=== PATIENT | male | born 1930 | race Caucasian/White ===

== ENCOUNTER → 2018-07-31 | Outpatient (REF) | payer MEDICARE ==
[2018-07-31 18:26] LABS: PERCENT SATURATION 15.4 % (19.7-50.0)
[2018-07-31 18:35] LABS: FOLATE 4.9 NG/ML
== END ==
LOC: M LAB REF 17:26
PROVIDERS: ATTEND Internal Medicine Nephrology
DX: D64.9 Anemia, unspecified (principal)

== ENCOUNTER → 2018-08-09 | Outpatient (CLI) | payer MEDICARE ==
--- NOTE | 2018-08-09 11:36 | REP ---
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 Status post left renal artery stent 2009. Now with worsening renal function and hypertension. No comparison imaging available. FINDINGS: The renal cortical echogenicity pattern is increased bilaterally consistent with chronic medical renal disease. No hydronephrosis is seen on either side. Multiple cysts are seen in each kidney. The largest cyst in the right kidney is at the lower pole measuring 3.6 x 3.6 x 3.3 cm. There are two upper pole cyst on the right measuring 1.7 and 1.6 cm in greatest diameter respectively. In the upper pole of the left kidney, there is a 4.2 x 4.1 x 4.6 cm cyst. There are three other cysts in the left mid and lower pole measuring 2.3, 3.0, and 2.2 cm in greatest diameter respectively. No renal mass lesion is seen. Right renal dimensions are 13.5 x 5.7 x 5.7 cm. The left kidney measures 11.6 x 5.4 x 5.5 cm. Visualized urinary bladder arvizu are smooth. RENAL ARTERY DOPPLER ASSESSMENT: Unfortunately, all of the midline vascular structures were obscured by abdominal gas. Peak systolic flow velocity could not be measured in the abdominal aorta or in either main renal artery. Resistive indices and acceleration times are measured in the intralobar arteries of the upper mid and lower pole bilaterally. These values are normal on the right. On the left, resistive indices are elevated suggesting small vessel disease. Acceleration time is elevated in the upper pole of the left kidney but normal in the lower and mid pole region. IMPRESSION: Hyperechoic renal parenchyma consistent with chronic medical renal disease. Multiple bilateral renal cysts. No hydronephrosis. Technically limited Doppler assessment due to bowel gas. Elevated acceleration times and resistive indices in the upper pole of the left kidney may reflect the result of renal artery stenosis. Main renal arteries and aorta could not be visualized. Electronically Signed by Mio Urban MD 08/09/2018 02:17 P
== END ==
LOC: M RAD 08:53
PROVIDERS: ATTEND Internal Medicine Nephrology
DX: N18.4 Chronic kidney disease, stage 4 (severe) (principal); I15.0 Renovascular hypertension; I70.1 Atherosclerosis of renal artery

== ENCOUNTER 2018-08-17 09:53 | Outpatient (CLI) | payer MEDICARE ==
[~2018-08-17] VITALS: Ht 175.3 cm; Wt 99.1 kg
[2018-08-17] VITALS (7 sets, daily range): BP systolic 122–156; BP diastolic 70–78
[2018-08-17] MEDS ORDERED: IRON SUCROSE 25 MG in NS 50 ML IV ONE (10:30)
[2018-08-17] MEDS ORDERED: FINA5TAB2 PO (10:58)
[2018-08-17] MEDS ORDERED: MIRA3350 PO (10:58)
[2018-08-17] MEDS ORDERED: SPIR-10 PO (10:58)
[2018-08-17] MEDS ORDERED: FLOM0.4C39 PO (10:58)
[2018-08-17] MEDS ORDERED: ALLO100T PO (10:58)
[2018-08-17] MEDS ORDERED: ASPI81TA85 PO (10:58)
[2018-08-17] MEDS ORDERED: CLON0.2T PO (10:58)
[2018-08-17] MEDS ORDERED: ATOR1TAB21 PO (10:58)
[2018-08-17] MEDS ORDERED: ACET1TAB55 PO (10:58)
[2018-08-17] MEDS ORDERED: GLIP5TAB8 PO (10:58)
[2018-08-17] MEDS ORDERED: FERR325T88 PO (10:58)
[2018-08-17] MEDS ORDERED: CALC1CAP31 PO (10:58)
[2018-08-17] MEDS ORDERED: FURO40TA2 PO (10:58)
[2018-08-17] MEDS ORDERED: AMLO10TA5 PO (10:58)
[2018-08-17] MEDS ORDERED: LOPR1TAB6 PO (10:58)
[2018-08-17] MEDS ORDERED: LANTINJ4 SC (10:58)
[2018-08-17] MEDS ORDERED: IRON SUCROSE 275 MG in NS 250 ML IV ONE (11:00)
== END 2018-08-17 15:40 | disposition home or self-care (01) ==
LOC: M INFU 09:53
PROVIDERS: ATTEND Internal Medicine Nephrology
DX: D50.9 Iron deficiency anemia, unspecified (principal); Z88.1 Allergy status to other antibiotic agents
CPT/HCPCS: 96365; 96366; J1756

== ENCOUNTER 2018-08-28 07:46 | Outpatient (CLI) | payer MEDICARE ==
[~2018-08-28] VITALS: Ht 175.3 cm; Wt 99.1 kg
[~2018-08-28 07:46] MED LIST: ACET1TAB55 PO; ALLO100T PO; AMLO10TA5 PO; ASPI81TA85 PO; ATOR1TAB21 PO; CALC1CAP31 PO; CLON0.2T PO; FERR325T88 PO; FINA5TAB2 PO; FLOM0.4C39 PO; FURO40TA2 PO; GLIP5TAB8 PO; LANTINJ4 SC; LOPR1TAB6 PO; MIRA3350 PO; SPIR-10 PO
[2018-08-28 07:50] VITALS: BP 160/71
[2018-08-28] MEDS ORDERED: IRON SUCROSE 300 MG in NS 250 ML OVER 90 MIN. IV ONE (09:00)
[2018-08-28 09:30] VITALS: BP 155/66
[2018-08-28 10:30] VITALS: BP 140/68
[2018-08-28 12:45] VITALS: BP 160/70
== END 2018-08-28 12:45 | disposition home or self-care (01) ==
LOC: M INFU 07:46
PROVIDERS: ATTEND Internal Medicine Nephrology
DX: D50.9 Iron deficiency anemia, unspecified (principal); N18.4 Chronic kidney disease, stage 4 (severe); I70.1 Atherosclerosis of renal artery; Z79.82 Long term (current) use of aspirin; Z79.899 Other long term (current) drug therapy; Z79.4 Long term (current) use of insulin; Z88.1 Allergy status to other antibiotic agents
CPT/HCPCS: 96365; 96366; J1756

== ENCOUNTER → 2018-10-02 | Outpatient (CLI) | payer MEDICARE ==
[~2018-10-02] MED LIST changes: +BUPIVACAINE HCL 0.5% 10 ML VIAL As Ordered ONE; +HEPARIN 1,000 UNITS/ML 10ML VIAL (FOR RADIOLOGY& DIALYSIS ONLY) As Ordered ONE; +ISOVUE-300 61% 50ML VIAL (Q9967) As Ordered ONE; +LIDOCAINE 2% MDV 20 ML VIAL As Ordered ONE; +MIDAZOLAM INJ 2 MG/2 ML VIAL (J2250) As Ordered ONE; +PROTAMINE SULF INJ 50 MG/5 ML VIAL (J2720) As Ordered ONE; +diphenhydrAMINE INJ 50MG/ML VIAL (J1200) As Ordered ONE; +fentaNYL 100 MCG/2 ML INJECTION (J3010) As Ordered ONE
[2018-10-02 15:55] VITALS: BP 148/68
--- NOTE | 2018-10-04 08:05 | REPIR ---
DATE OF PROCEDURE: 10/02/2018 ATTENDING SURGEON: Dr. Kelvin Silva MECHANICAL EQUIPMENT TEST ENGINEER: Myra Castañeda and Russel Reynolds PREOPERATIVE DIAGNOSES: Left renal artery stenosis status post left renal artery angioplasty and stenting. Renal insufficiency nearing end stage renal disease. Hypertension. POSTPROCEDURE DIAGNOSES: Left renal artery stenosis status post left renal artery angioplasty and stenting. Renal insufficiency nearing end stage renal disease. Hypertension. PROCEDURE: Right common femoral arterial cannulation, selective left renal artery catheter placement with angiogram, left renal artery angioplasty stent with a 6 x 18 Express SD stent, Mynx closure of the right common femoral arteriotomy with a 6-Malay Mynx closure device. INDICATION: The patient is an 87-year-old male with worsening renal function and hypertension who has previously undergone left renal artery angioplasty and stenting. The patient recently underwent ultrasound evaluation of the stent, which showed greater than 50% stenosis. The patient will now undergo left renal artery angiogram with possible angioplasty and stent. ANESTHESIA: Local with 20 mL of 2% lidocaine mixed 0.5% Marcaine, Benadryl 50 mg. CONTRAST: 1 mL of Isovue-300. FLUORO TIME: 0.0 minutes. HEPARIN: 7000 units, protamine 50 mg. COMPLICATIONS: None. DRAINS: None. SPECIMENS: None. IMPLANTS: #6-Malay Mynx closure device used to close the arteriotomy and the right common femoral artery, 6 x 18 Express SD stent used to angioplasty and stent the previously angioplastied and stented left renal artery. PROCEDURE: The patient was taken to the angiography suite, placed supine on the angiography table and then prepped and draped in a standard surgical fashion. The right common femoral artery was cannulated with a micropuncture needle after anesthetizing the overlying skin with 2% lidocaine mixed 0.5% Marcaine. The micropuncture wire was advanced through the micropuncture needle, which was upsized to a micropuncture sheath. Bentson wire was advanced through the micropuncture sheath, which was upsized to 5-Malay sheath. The 5-Malay sheath was then upsized to a 6-Malay sheath over the Bentson wire. An RDG guide catheter was used, as well as a to cannulate the left renal artery and an angiogram was performed with 0.5 mL of Isovue-300. This showed an approximate 90% stenosis within the previously stented left renal artery. The left renal artery then underwent angioplasty and stenting with a 6 x 18 Express SD stent. The followup left renal artery angiogram showed resolution of the stenosis with good filling of the left renal artery distal to the stent. Catheters and wires were removed. A Mynx closure device was used to close the arteriotomy in the right common femoral artery with an additional 10 minutes of adjunctive pressure applied for hemostasis. Dressings were then applied. The patient tolerated the procedure well. All instrument, sponge and needle counts were correct at the case. There were no complications. Dr. Silva was present for and directed the entire case. The patient was transferred to the holding area and subsequently discharged home in stable condition.
== END ==
LOC: M IRPRO 09:37
PROVIDERS: ATTEND Surgery Vascular Surgery
DX: I70.1 Atherosclerosis of renal artery (principal); I12.0 Hypertensive chronic kidney disease with stage 5 chronic kidney disease or end stage renal disease; E78.5 Hyperlipidemia, unspecified; N40.0 Benign prostatic hyperplasia without lower urinary tract symptoms; N18.5 Chronic kidney disease, stage 5; D64.9 Anemia, unspecified; E11.22 Type 2 diabetes mellitus with diabetic chronic kidney disease; M10.9 Gout, unspecified
CPT/HCPCS: 36251; 37236; C1725; C1760; C1769; C1876; C1887; C1894; J1200; J2720; Q9967

== ENCOUNTER → 2018-11-14 | Outpatient (CLI) | payer MEDICARE ==
[~2018-11-14] MED LIST changes: -BUPIVACAINE HCL 0.5% 10 ML VIAL As Ordered ONE; -HEPARIN 1,000 UNITS/ML 10ML VIAL (FOR RADIOLOGY& DIALYSIS ONLY) As Ordered ONE; -ISOVUE-300 61% 50ML VIAL (Q9967) As Ordered ONE; -LIDOCAINE 2% MDV 20 ML VIAL As Ordered ONE; -MIDAZOLAM INJ 2 MG/2 ML VIAL (J2250) As Ordered ONE; -PROTAMINE SULF INJ 50 MG/5 ML VIAL (J2720) As Ordered ONE; -diphenhydrAMINE INJ 50MG/ML VIAL (J1200) As Ordered ONE; -fentaNYL 100 MCG/2 ML INJECTION (J3010) As Ordered ONE
--- NOTE | 2018-11-14 10:39 | REP ---
Renal vascular ultrasound: Comparison is 08/09/2018. The patient has history of left renal artery angioplasty and stenting in 2009 and underwent a left renal artery angioplasty and stenting again approximate 1 month ago. Right Kidney: Extraparenchymal renal artery. Peak renal artery flow velocity the 113 cm/ sec Peak aortic velocity: 89.5 cm/sec Renal/aortic ratio: 1.26 Intraparenchymal renal arteries. Resistive index: upper pole 0.87 mid pole 0.89 lower pole 0.88 Acceleration time: upper pole 0.054 mid pole 0.048 lower pole 0.044 Left kidney: Extraparenchymal renal artery: Peak renal artery flow velocity: 72.2 cm/sec. Peak aortic velocity: 89.5 cm/sec Renal/aortic ratio: 0.64 Intraparenchymal renal arteries: Resistive index: Upper pole or 0.7 C mid pole 0.92 lower pole 0.83 Acceleration time: Upper pole 0.248 mid pole 0.38 lower pole 0.046 Impression: The peak flow velocities in the right and left renal arteries are in the normal range. The renal - aortic ratios are normal bilaterally. The resistive indices are elevated bilaterally in the intraparenchymal renal arteries. This is nonspecific but compatible with chronic renal disease and end artery disease. The intraparenchymal artery acceleration times are increased in the left renal upper and mid poles. Normal is less than 0.07 sec. This is nonspecific but could also be related to end artery disease. The left renal artery stent is not optimally visualized on the examination today. Bilateral renal ultrasound: The right kidney measures 13.9 x 5.4 x 5.8 cm. Left kidney measures 12.2 x 5.6 x 5.3 cm. The kidneys are normal size. There is bilateral renal cortical hyper echogenicity, compatible with medical renal disease. The renal vessels are echogenic. There is increased renal sinus fat bilaterally. There is no hydronephrosis or calculus on the right on the left. There are no solid renal masses. There are three right renal cysts, one at the upper pole measuring up to 1.8 cm, one at the mid/upper pole measuring up to 1.6 cm and one at the lower pole measuring up to 4.0 cm. There are four left renal cysts, one at the upper pole measuring up to 2.0 cm, another at the upper pole measuring up to 4.9 cm, one at the mid pole measuring up to 2.6 cm and one at the lower pole measuring up to 3.7 cm. Impression: The kidneys are normal size. There are multiple bilateral renal cortical cysts as described. The renal cortices are hyper echoic bilaterally compatible with medical renal disease. Electronically Signed by Leroy Torres MD 11/14/2018 10:31 A
== END ==
LOC: M RAD 08:07
PROVIDERS: ATTEND Physician Assistant
DX: I70.1 Atherosclerosis of renal artery (principal); N28.1 Cyst of kidney, acquired

== ENCOUNTER → 2019-02-26 | Outpatient (REF) | payer MEDICARE ==
[2019-02-26 14:00] LABS: ALBUMIN 3.4 GM/DL (3.2-5.2); CALCIUM LEVEL 8.7 MG/DL (8.8-10.2); CREATININE FOR GFR 3.16 MG/DL (0.70-1.30); GLOMERULAR FILTRATION RATE 19.9 (>35); PHOSPHORUS LEVEL 4.1 MG/DL (2.5-4.9); POTASSIUM SERUM 4.7 MEQ/L (3.5-5.1)
== END ==
LOC: M LAB REF 12:46
PROVIDERS: ATTEND Internal Medicine Nephrology
DX: N18.5 Chronic kidney disease, stage 5 (principal); M1A.30X0 Chronic gout due to renal impairment, unspecified site, without tophus (tophi)

== ENCOUNTER → 2019-03-07 | Outpatient (CLI) | payer MEDICARE ==
[~2019-03-07] MED LIST changes: +MM S100C PO; +OXYC1TAB23 PO
--- NOTE | 2019-03-07 12:01 | REP ---
BILATERAL UPPER EXTREMITY DUPLEX DOPPLER ARTERIAL AND VENOUS ULTRASOUND: Real-time ultrasound evaluation and duplex Doppler interrogation of bilateral upper extremity arterial and venous systems is performed to evaluate for AV fistula placement. There is no evidence of deep venous thrombosis bilaterally. On the right the basilic vein measures 4 mm at the level of the humerus, 2 mm in the upper forearm and 1 mm in the lower forearm. Median cubital vein measure 4 mm. Right cephalic vein measures 4 mm at the level of the humerus and in the upper forearm and 3 mm in the lower forearm. Right upper extremity arterial structures demonstrate normal flow velocities with normal biphasic and triphasic waveforms diffusely. Right axillary artery measures 6 mm, right brachial artery measures 6 mm, radial artery measures 4 mm as does the ulnar artery. On the left the basilic vein measures 3 mm at the upper humerus, 2 mm at the lower humerus and 1 mm throughout the forearm. Median cubital vein measures 1 mm. Left cephalic vein measures 3 mm at the humerus level and 2 mm throughout the forearm. Left upper extremity arterial structures demonstrate normal flow velocities with biphasic and triphasic waveforms. Left axillary artery measures 6 mm as does the brachial artery. The left radial artery measures 3 mm. Left ulnar artery measures 4 mm proximally and 3 mm distally. Electronically Signed by Leroy Mai MD 03/07/2019 07:09 P
== END ==
LOC: M RAD 08:55
PROVIDERS: ATTEND Internal Medicine Nephrology
DX: Z01.818 Encounter for other preprocedural examination (principal); N18.5 Chronic kidney disease, stage 5; I15.0 Renovascular hypertension; E11.22 Type 2 diabetes mellitus with diabetic chronic kidney disease

== ENCOUNTER 2019-04-08 09:43 | Day surgery (SDC) | payer MEDICARE ==
[~2019-04-08] VITALS: Ht 175.3 cm; Wt 95.3 kg
[~2019-04-08 09:43] MED LIST changes: +LIDOCAINE 2% INJ 100 MG/5 ML SDV (FOR ANES.) As Ordered ONE; +MIDAZOLAM INJ 2 MG/2 ML VIAL (J2250) As Ordered ONE; +MIDAZOLAM INJ 2 MG/2 ML VIAL (J2250) IV SCH; +NS 1,000 ML IV SCH; +ONDANSETRON 4MG/2ML VIAL (J2405) As Ordered ONE; -OXYC1TAB23 PO; +ceFAZolin SOD 2 GM in IV 1 EA IV ONE; +dexameTHASONE 4 MG/ML 1ML VIAL (J1100) As Ordered ONE; +fentaNYL 100 MCG/2 ML INJECTION (J3010) IV SCH; +fentaNYL 250 MCG/5 ML INJECTION (J3010) As Ordered ONE; +propofoL 200 MG/20 ML VIAL As Ordered ONE
[2019-04-08] MEDS ORDERED: EPINEPHrine INJ 1 MG/ML 1ML VIAL ONE (09:44)
[2019-04-08] MEDS ORDERED: ROPIvacaine 0.5% 30 ML INJECTION (J2795 PER 1MG) ONE (09:44)
[2019-04-08] MEDS ORDERED: dexameTHASONE 10 MG/1 ML VIAL PRES.FREE (J1100) ONE (09:44)
[2019-04-08] MEDS ORDERED: DESFLURANE 240 ML INHALANT As Ordered ONE (09:46)
[2019-04-08 10:18] LABS: HEMATOCRIT 34.9 % (42.0-52.0); HEMOGLOBIN 11.7 g/dl (13.5-17.5); MEAN CORPUSCULAR HEMOGLOBIN 31.7 pg (27.0-33.0); MEAN CORPUSCULAR HGB CONC 33.5 g/dl (32.0-36.5); MEAN CORPUSCULAR VOLUME 94.6 fl (80.0-96.0); PLATELET COUNT, AUTOMATED 124 10^3/uL (150-450); RED BLOOD COUNT 3.69 10^6/uL (4.30-6.10); WHITE BLOOD COUNT 7.4 10^3/uL (4.0-10.0)
[2019-04-08 10:30] LABS: INR 1.07; PROTHROMBIN TIME 13.6 SECONDS (11.8-14.0)
[2019-04-08 10:31] LABS: PARTIAL THROMBOPLASTIN TIME 35.9 SECONDS (25.0-38.4)
[2019-04-08 10:40] LABS: CALCIUM LEVEL 9.7 MG/DL (8.8-10.2); CREATININE FOR GFR 3.43 MG/DL (0.70-1.30); GLOMERULAR FILTRATION RATE 18.1 (>35); POTASSIUM SERUM 4.8 MEQ/L (3.5-5.1)
[2019-04-08] MEDS ORDERED: MIDAZOLAM INJ 2 MG/2 ML VIAL (J2250) As Ordered ONE (11:05)
[2019-04-08] MEDS ORDERED: fentaNYL 100 MCG/2 ML INJECTION (J3010) As Ordered ONE (11:05)
[2019-04-08] MEDS ORDERED: LIDOCAINE 1% MDV 20ML VIAL As Ordered ONE (12:12)
[2019-04-08] MEDS ORDERED: HEPARIN SOD (PORCINE) 5000 UNITS/ML VIAL (J1644 PER 1000UNITS) As Ordered ONE (12:13)
[2019-04-08] MEDS ORDERED: ISOVUE-300 61% 50ML VIAL (Q9967) As Ordered ONE (12:13)
--- NOTE | 2019-04-08 13:45 | ROOPDOC ---
[facility] Report Of Operation Report of Operation DATE OF PROCEDURE: 04/08/19 PREPROCEDURE DIAGNOSES: End-stage renal disease requiring access for dialysis POSTPROCEDURE DIAGNOSES: Same PROCEDURE: Right brachiocephalic AV fistula creation SURGEON: Heron Pantoja MD ANESTHESIA: Monitored anesthesia care and right scalene block and local INDICATION FOR PROCEDURE: This is a very pleasant 88-year-old gentleman who requires dialysis access and vein mapping was reviewed and showed that his right upper extremity had a suitable cephalic vein for fistula creation, with good brachial artery flow. Risks benefits alternatives to right brachiocephalic AV fistula are explained to the patient he is agreeable to proceed. Informed consent was obtained. REPORT OF OPERATION: The patient had a right scalene block placed by our anesthesia colleagues in preop holding. The patient was brought to the operating room in stable condition and placed supine on the OR table. Monitored anesthesia care and antibiotics were administered without complication. His right upper extremity was prepped and draped in a sterile fashion. A timeout was performed. Local anesthesia was administered to the skin and subcutaneous tissue just distal to the antecubital crease over the brachial artery pulse. A transverse incision was made and carried down to the subcutaneous tissues with Bovie caute ry. The cephalic vein was identified and skeletonized proximally and distally within the incision. Following this, 2 distal branch points were suture ligated divided and connected using a pot scissors to make a larger patch for anastomosis. We then passed dilators sequentially proximally through the vein, starting with a 3.5 mm, then 4 mm, then 4.5 mm. All dilators passed with ease. There was good backbleeding from the vein. We then flushed the vein with heparinized saline and bulldog clamp was placed. We continued our dissection down to the brachial artery. It was skeletonized proximally and distally within the incision and Vesseloops were placed. We then secure the Vesseloops and made a 5 mm arteriotomy and the vein was anastomosis to the artery and an end-to-side fashion. Before the final sutures are placed, we flushed inflow and outflow and irrigated with heparinized saline. We then placed her final sutures restored flow first through the vein and the inflow artery then the outflow artery to the hand. Following this, there was a good thrill in the vein, and there was a good pulses at the radial artery. There was a biphasic signal at the palmar arch. The hand was warm and well-perfused. We irrigated with normal saline and the deep tissues were approximated with running Vicryl suture and the deep dermal layer was approximated with interrupted Vicryl suture and the skin was closed with running subcuticular Monocryl suture. Mastisol and Steri-Strips were used to dress the incision after cleaning thoroughly with saline. 4 x 4 and Tegaderm was uses final dressing and a sling was placed to protect the arm until the nerve block were soft. The patient tolerated this well and was then taken to recovery in stable condition. ESTIMATED BLOOD LOSS: Approximately 20 mL. COMPLICATIONS: None. PLAN: We will plan to see the patient back in about a week to check the incision and the thrill in the fistula. He should continue to use a squeeze ball to help with fistula maturation. Okay to remove the sling when the nerve block wears off. Okay to resume preoperative diet. Okay to shower. No tub baths. Try to leave Steri-Strips intact 5-7 days to help with healing. Okay to remove Tegaderm and gauze after 24 hours if desired. HERON PANTOJA MD Apr 08, 2019 13:45
[2019-04-08] MEDS ORDERED: OXYC1TAB23 PO (13:51)
[2019-04-08 14:50] VITALS: BP 180/74
--- NOTE | 2019-04-09 07:52 | ECGEPIP ---
[facility] Test Date: 2019-04-08 Pat Name: JOSE TAYLOR Department: Room: - Gender: Male [employer]: DIA : [id number] Requested By: BREN Thompson Order Number: [id number] Reading MD: Evelio Blue Measurements Intervals Dubberly Rate: 56 P: -19 VA: 305 QRS: 2 QRSD: 128 T: 137 QT: 453 QTc: 438 Interpretive Statements sinus bradycardia LA conduction disturbance Marked first-degree AV block Incomplete Left bundle branch block with prominent precordial voltage and lateral strain Probable LVH No prior tracing for comparison. Clincal correlation advised Electronically Signed on 04-09-2019 7:51:59 EST by Evelio Blue
== END 2019-04-08 15:05 | disposition home or self-care (01) ==
LOC: M SDC 09:43
PROVIDERS: ATTEND Surgery Vascular Surgery
DX: N18.6 End stage renal disease (principal); E11.22 Type 2 diabetes mellitus with diabetic chronic kidney disease; I12.0 Hypertensive chronic kidney disease with stage 5 chronic kidney disease or end stage renal disease; E78.00 Pure hypercholesterolemia, unspecified; I25.10 Atherosclerotic heart disease of native coronary artery without angina pectoris; N40.0 Benign prostatic hyperplasia without lower urinary tract symptoms; I70.1 Atherosclerosis of renal artery; G47.30 Sleep apnea, unspecified; K21.9 Gastro-esophageal reflux disease without esophagitis; K59.00 Constipation, unspecified; D50.9 Iron deficiency anemia, unspecified; R06.83 Snoring; Z88.2 Allergy status to sulfonamides; Z79.899 Other long term (current) drug therapy; Z95.5 Presence of coronary angioplasty implant and graft; Z79.4 Long term (current) use of insulin
CPT/HCPCS: 36415; 36821; 64450; 80048; 85027; 85610; 85730; 86850; 86900; 86901; 93005; J0690; J1100; J1644; J2250; J2405; J2795; J3010

== ENCOUNTER → 2019-08-05 | Outpatient (CLI) | payer MEDICARE ==
[~2019-08-05] MED LIST changes: -LIDOCAINE 2% INJ 100 MG/5 ML SDV (FOR ANES.) As Ordered ONE; -MIDAZOLAM INJ 2 MG/2 ML VIAL (J2250) As Ordered ONE; -MIDAZOLAM INJ 2 MG/2 ML VIAL (J2250) IV SCH; -NS 1,000 ML IV SCH; -ONDANSETRON 4MG/2ML VIAL (J2405) As Ordered ONE; +OXYC1TAB23 PO; -ceFAZolin SOD 2 GM in IV 1 EA IV ONE; -dexameTHASONE 4 MG/ML 1ML VIAL (J1100) As Ordered ONE; -fentaNYL 100 MCG/2 ML INJECTION (J3010) IV SCH; -fentaNYL 250 MCG/5 ML INJECTION (J3010) As Ordered ONE; -propofoL 200 MG/20 ML VIAL As Ordered ONE
== END ==
LOC: M LABSMTC 11:20
PROVIDERS: ATTEND Anesthesiology
DX: Z03.818 Encounter for observation for suspected exposure to other biological agents ruled out (principal)
CPT/HCPCS: C9803; U0003

== ENCOUNTER 2019-08-08 09:26 | Day surgery (SDC) | payer MEDICARE ==
[~2019-08-08] VITALS: Ht 175.3 cm; Wt 96.2 kg
[~2019-08-08 09:26] MED LIST changes: +BUPIVACAINE/EPIN 0.5% 30 ML VIAL As Ordered ONE; +D5W/0.2% SODIUM CHLORIDE 1,000 ML IV ONE; +HEPARIN SOD (PORCINE) 5000UNITS/ML VIAL (J1644 PER 1000UNITS) As Ordered ONE; +ISOVUE-300 61% 50ML VIAL As Ordered ONE; +LIDOCAINE 1% SDV 30ML VIAL As Ordered ONE; +LIDOCAINE 2% 100MG/5ML SDV (FOR ANES.) As Ordered ONE; +MIDAZOLAM INJ 2MG/2ML VIAL (J2250 PER 1MG) As Ordered ONE; +ONDANSETRON 4MG/2ML VIAL As Ordered ONE; +PHENYLephrine HCL 500 MCG/5 ML (100MCG/ML) SYRINGE (J2370) As Ordered ONE; +ROCURONIUM BROMIDE 50 MG/5 ML VIAL As Ordered ONE; +SUGAMMADEX SODIUM 500 MG/5 ML VIAL (BRIDION) As Ordered ONE; +ceFAZolin SOD 2 GM in IV 1 EA IV ONE; +dexameTHASONE 4 MG/ML 1ML VIAL (J1100 PER 1MG) As Ordered ONE; +ePHEDrine SULFATE 25 MG/5 ML(5MG/ML) SYRINGE As Ordered ONE; +fentaNYL 100 MCG/2 ML INJECTION (J3010) As Ordered ONE; +propofoL 200 MG/20 ML VIAL As Ordered ONE
[2019-08-08] MEDS ORDERED: GLYCOPYRROLATE INJ 0.2 MG/ML 2 ML VIAL As Ordered ONE (10:48)
--- NOTE | 2019-08-08 11:46 | ROOPDOC ---
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 He was seen in clinic, and to cephalic vein has sufficient diameter, but still not well tori rialized secondary to a lot of blood stealing from the fistula through a large branch near the AV anastomosis. Risks benefits and alternatives to an open ligation of the large branch of the cephalic vein were explained to the patient and he is agreeable to proceed. Informed consent was obtained. REPORT OF OPERATION: Patient was brought to the OR in stable condition. Monitored anesthesia care and antibiotics were administered without consultation. His right upper extremity was prepped and draped in a sterile fashion. A timeout was performed. Ultrasound was used to examine the fistula and the large branch was identified and marked. The previous incision was opened for a length of 2 cm after anesthetizing with local anesthesia. We then carefully dissected down to the fistula branch. A right angle was used to deliver a tie around the branch 2 and these were secured for ligation of the flow through the branch. Upon ligation of the branch, Doppler confirmed a dramatic improvement in flow through the true cephalic fistula. Doppler also confirmed that there was no longer any high fistula flow through the branch. The incision was irrigated with saline. Deep tissue was approximated with Vicryl suture. The deep dermal layer was approximated with Vicryl suture. The skin was closed with a subcuticular Monocryl suture. The incision was clean and dry. Mastisol and Steri-Strips were placed the length of the wound and a dry gauze and Tegaderm were used to cover this is a final dressing. The patient was allowed to awaken from anesthesia was taken to recovery in stable condition. He tolerated the procedure well. ESTIMATED BLOOD LOSS: Approximately 5 mL. COMPLICATIONS: None. PLAN: Resume home diet medications. We will see the patient back in a week to check his incision and his fistula. Okay to remove Tegaderm and gauze after 24 hours. Try to leave Steri-Strips intact 7 days to help with healing. Okay for ice to incision for comfort. Okay for Tylenol for pain as needed. Okay to shower, but no tub baths for swimming pools or hot tubs until incision is completely healed. We appreciate the opportunity to participate in the care of this patient. HERON PANTOJA MD Aug 08, 2019 11:46
[2019-08-08 12:00] VITALS: BP 169/72
== END 2019-08-08 12:20 | disposition home or self-care (01) ==
LOC: M SDC 09:26
PROVIDERS: ATTEND Surgery Vascular Surgery
DX: T82.590A Other mechanical complication of surgically created arteriovenous fistula, initial encounter (principal); N18.4 Chronic kidney disease, stage 4 (severe); X58.XXXA Exposure to other specified factors, initial encounter
CPT/HCPCS: 36832; J0690; J1100; J1644; J2250; J2370; J2405; J3010

== ENCOUNTER → 2020-01-23 | Outpatient (REF) | payer MEDICARE ==
[~2020-01-23] MED LIST changes: -AMLO10TA5 PO; +AMLO1TAB25 PO; -ASPI81TA85 PO; +ASPI81TA86 PO; -BUPIVACAINE/EPIN 0.5% 30 ML VIAL As Ordered ONE; -D5W/0.2% SODIUM CHLORIDE 1,000 ML IV ONE; -HEPARIN SOD (PORCINE) 5000UNITS/ML VIAL (J1644 PER 1000UNITS) As Ordered ONE; -ISOVUE-300 61% 50ML VIAL As Ordered ONE; -LIDOCAINE 1% SDV 30ML VIAL As Ordered ONE; -LIDOCAINE 2% 100MG/5ML SDV (FOR ANES.) As Ordered ONE; -MIDAZOLAM INJ 2MG/2ML VIAL (J2250 PER 1MG) As Ordered ONE; -ONDANSETRON 4MG/2ML VIAL As Ordered ONE; -PHENYLephrine HCL 500 MCG/5 ML (100MCG/ML) SYRINGE (J2370) As Ordered ONE; -ROCURONIUM BROMIDE 50 MG/5 ML VIAL As Ordered ONE; -SUGAMMADEX SODIUM 500 MG/5 ML VIAL (BRIDION) As Ordered ONE; -ceFAZolin SOD 2 GM in IV 1 EA IV ONE; -dexameTHASONE 4 MG/ML 1ML VIAL (J1100 PER 1MG) As Ordered ONE; -ePHEDrine SULFATE 25 MG/5 ML(5MG/ML) SYRINGE As Ordered ONE; -fentaNYL 100 MCG/2 ML INJECTION (J3010) As Ordered ONE; -propofoL 200 MG/20 ML VIAL As Ordered ONE
[2020-01-23 18:49] LABS: HEPATITIS B CORE ANTIBODY IGM NEGATIVE (NEGATIVE); HEPATITIS B SURFACE ANTIBODY NEGATIVE (POSITIVE); HEPATITIS B SURFACE ANTIGEN NEGATIVE (NEGATIVE)
[2020-01-27 09:42] LABS: IRON (FE) 61 UG/DL (65-175); PERCENT SATURATION 23.4 % (19.7-50.0); TOTAL IRON BINDING CAPACITY 261 UG/DL (250-450)
== END ==
LOC: M LAB REF 16:45
PROVIDERS: ATTEND Nurse Practitioner Family
DX: N18.5 Chronic kidney disease, stage 5 (principal)